=== PATIENT | male | born 1950 | race African-American/Black ===

== ENCOUNTER 2020-01-23 03:19 | Inpatient (IN) | payer BC, OTHER ==
[~2020-01-23] VITALS: Ht 172.7 cm; Wt 73.5 kg
[2020-01-23] VITALS (7 sets, daily range): BP systolic 127–159; BP diastolic 48–97
[2020-01-23] MEDS ORDERED: SODIUM CHLORIDE 0.9% 1,000 ML IV ONE (03:29)
[2020-01-23] MEDS ORDERED: METHYLPREDNISOLONE SOD SUCC 125 MG/2 ML VIAL IV STA (03:29)
[2020-01-23] MEDS ORDERED: IPRATROPIUM BROMIDE (0.02%) 0.5MG/2.5ML NEB HHN STA (03:29)
[2020-01-23] MEDS ORDERED: ONDANSETRON HCL 4MG/2ML INJ IV STA (03:29)
[2020-01-23] MEDS ORDERED: MAGNESIUM 2 G PREMIX 50 ML IV ONE (03:30)
[2020-01-23] MEDS: ALBUTEROL (0.083%) 2.5MG/3ML NEB HHN SCH ×2 (03:40→05:55)
[2020-01-23 04:03] LABS: BG BASE EXCESS -2.6 mmol/L (-2.0-2.0); BG BILEVEL POS AIRWAY PRESSURE 18/5; BG CARBOXYHEMOGLOBIN 0.3 % (0.5-1.5); BG DEOXYHEMOGLOBIN 0.8 % (0.0-5.0); BG FRACTION INSPIRED OXYGEN 50; BG HCO3 ACT 23.4 mmol/L (22.0-26.0); BG METHEMOGLOBIN 0.4 % (0.0-1.5); BG OXYGEN SATURATION 99.2 % (92.0-98.5); BG OXYHEMOGLOBIN 98.5 % (94.0-97.0); BG PCO2 45.3 mmHg (35.0-45.0); BG PH 7.331 (7.350-7.450); BG PO2 229.8 mmHg (75.0-100.0); BG SAMPLE SITE RIGHT BRACHIAL; BG TOTAL HEMOGLOBIN 13.1 g/dL (12.0-18.0); BG VENT MODE MASK - BIPAP; BG VENT RATE 16 set
[2020-01-23 04:08] LABS: BASOPHILS % 0.7 % (0.0-2.0); CHLORIDE 101 mEq/L (98-107); EOSINOPHILS % 12.7 % (0.0-5.0); HEMATOCRIT. 39.6 % (42.0-52.0); HEMOGLOBIN. 13.1 g/dL (14.0-18.0); MEAN CORPUSCULAR HEMOGLOBIN 29.9 pg (28.0-32.0); MEAN CORPUSCULAR VOLUME 90.4 fL (80.0-94.0); MONOCYTES % 5.2 % (2.0-8.0); NEUTROPHILS % 69.4 % (40.0-76.0); PLATELET 173 x1000/uL (130-400); RED BLOOD CELL COUNT 4.38 mill/uL (4.7-6.1); RED CELL DISTRIBUTION WIDTH 15.4 % (11.6-14.6)
[2020-01-23] MEDS ORDERED: IPRATROPIUM BROMIDE (0.02%) 0.5MG/2.5ML NEB ONE (08:01)
[2020-01-23] MEDS ORDERED: ALBUTEROL (0.083%) 2.5MG/3ML NEB ONE (08:02)
[2020-01-23] MEDS ORDERED: MAGNESIUM/ALUMINUM HYDROXIDE/SIMETHICONE 30ML UDC PO PRN (08:45)
[2020-01-23] MEDS ORDERED: ONDANSETRON HCL 4MG/2ML INJ IV PRN (08:45)
[2020-01-23] MEDS ORDERED: IPRATROPIUM/ALBUTEROL 0.5-3(2.5)MG/3ML NEB NEB PRN (08:45)
[2020-01-23] MEDS ORDERED: GUAIFENESIN 200MG/10ML SUGAR FREE UDC PO PRN (08:45)
[2020-01-23] MEDS ORDERED: DEXTROSE 50% WATER 50ML SYRINGE IV PRN (08:45)
[2020-01-23] MEDS ORDERED: DOCUSATE SODIUM 100MG CAPSULE PO PRN (08:45)
[2020-01-23] MEDS ORDERED: ACETAMINOPHEN 325MG TABLET PO PRN ×2 (08:45)
[2020-01-23] MEDS ORDERED: TRAMADOL 50MG TABLET PO PRN (08:45)
[2020-01-23] MEDS: BLOOD SUGAR DIAGNOSTIC STRIP TEST SCH ×4 (09:00→21:00)
[2020-01-23] MEDS ORDERED: LEVOFLOXACIN 500MG PREMIX 100 ML IV SCH (09:30)
[2020-01-23] MEDS ORDERED: INSULIN GLARGINE UD 100 UNITS/ML SYR SUBCUT SCH (10:00)
[2020-01-23] MEDS: AMLODIPINE 10MG TABLET PO SCH (10:45)
[2020-01-23] MEDS: ASPIRIN 325MG EC TABLET PO SCH (10:45)
[2020-01-23] MEDS: ENOXAPARIN 40MG/0.4ML SYR SUBCUT SCH (10:47)
[2020-01-23] MEDS: INSULIN LISPRO 100 UNITS/ML SUBCUT SCH ×4 (10:47→22:28)
[2020-01-23] MEDS: FAMOTIDINE 20MG TABLET PO SCH ×2 (11:03→22:02)
[2020-01-23] MEDS: IPRATROPIUM/ALBUTEROL 0.5-3(2.5)MG/3ML NEB HHN SCH ×3 (11:09→20:00)
[2020-01-23] MEDS ORDERED: HYDR-4133 PO (12:15)
[2020-01-23] MEDS ORDERED: METF500T MT (12:15)
[2020-01-23] MEDS ORDERED: LISI-186 PO (12:15)
[2020-01-23] MEDS ORDERED: ATOR40TA70 MT (12:15)
[2020-01-23] MEDS ORDERED: ATEN-42 PO (12:15)
[2020-01-23] MEDS ORDERED: GLIP10TA10 MT (12:15)
[2020-01-23] MEDS: METHYLPREDNISOLONE SOD SUCC 125 MG/2 ML VIAL IV SCH ×2 (13:55→22:02)
[2020-01-23 16:00] LABS: CREATINE KINASE MB FRACTION 3.5 ng/mL (0.5-3.6)
[2020-01-23] MEDS: CLONIDINE 0.1MG TABLET PO PRN (18:20)
[2020-01-23] MEDS: GUAIFENESIN/DM 600MG/30MG ER TAB 12HR PO SCH (22:02)
[2020-01-24] VITALS (12 sets, daily range): BP systolic 132–185; BP diastolic 78–106
[2020-01-24] MEDS: ZOLPIDEM TARTRATE 5MG TABLET PO PRN ×2 (00:55→22:00)
[2020-01-24] MEDS: IPRATROPIUM/ALBUTEROL 0.5-3(2.5)MG/3ML NEB HHN SCH ×7 (00:59→23:59)
[2020-01-24] MEDS: GUAIFENESIN/DM 600MG/30MG ER TAB 12HR PO SCH ×3 (05:39→21:41)
[2020-01-24] MEDS: METHYLPREDNISOLONE SOD SUCC 125 MG/2 ML VIAL IV SCH ×3 (05:39→21:41)
[2020-01-24] MEDS: BLOOD SUGAR DIAGNOSTIC STRIP TEST SCH ×3 (07:30→21:56)
[2020-01-24] MEDS: ENOXAPARIN 40MG/0.4ML SYR SUBCUT SCH (09:30)
[2020-01-24] MEDS: ASPIRIN 325MG EC TABLET PO SCH (09:30)
[2020-01-24] MEDS: INSULIN LISPRO 100 UNITS/ML SUBCUT SCH ×4 (09:31→21:56)
[2020-01-24] MEDS: FAMOTIDINE 20MG TABLET PO SCH ×2 (09:32→21:48)
[2020-01-24] MEDS: AMLODIPINE 10MG TABLET PO SCH (09:32)
[2020-01-24] MEDS: LISINOPRIL 40MG TABLET PO SCH (10:45)
[2020-01-24] MEDS ORDERED: DILTIAZEM HCL 5MG/ML 5ML VIAL IV NR (10:45)
[2020-01-24] MEDS: NITROGLYCERIN 0.4MG TABLET SL SL PRN ×2 (10:51→12:37)
[2020-01-24] MEDS ORDERED: NITROGLYCERIN 50MCG/ML 10ML VIAL (CATH LAB) IV ONE (10:56)
[2020-01-24] MEDS ORDERED: NICARDIPINE 100MCG/ML 10ML VIAL (CATH LAB) IV ONE (10:56)
[2020-01-24] MEDS ORDERED: HEPARIN SODIUM 1,000 UNIT/1ML VIAL IV ONE (10:56)
[2020-01-24] MEDS ORDERED: LEVOFLOXACIN 500MG PREMIX 100 ML IV SCH ×2 (11:00→12:00)
[2020-01-24] MEDS: MORPHINE SULFATE 2 MG/ML CPJ (NOT FOR IM USE) IV PRN (11:03)
[2020-01-24 12:15] LABS: CREATINE KINASE MB FRACTION 4.1 ng/mL (0.5-3.6)
[2020-01-24] MEDS: CLONIDINE 0.1MG TABLET PO PRN (12:37)
[2020-01-24] MEDS ORDERED: INSULIN GLARGINE UD 100 UNITS/ML SYR SUBCUT NR (14:00)
[2020-01-24] MEDS ORDERED: FENTANYL CITRATE/PF 50MCG/ML 2ML VIAL ONE (15:17)
[2020-01-24] MEDS ORDERED: MIDAZOLAM HCL 2 MG/2 ML VIAL ONE (15:17)
[2020-01-24] MEDS ORDERED: LIDOCAINE HCL 1% 20ML VIAL (Pyxis) INJ ONE (15:18)
[2020-01-24] MEDS ORDERED: IODIXANOL 320MG/ML 100 ML BOTTLE IV ONE (15:18)
[2020-01-24] MEDS ORDERED: IOHEXOL-300 100 ML BOTTLE ONE (15:43)
[2020-01-24] MEDS ORDERED: CLOPIDOGREL 75MG TABLET ONE (16:01)
[2020-01-24] MEDS ORDERED: ASPIRIN 325MG TABLET ONE (16:01)
[2020-01-24] MEDS ORDERED: ACETAMINOPHEN 325MG TABLET PO PRN (16:15)
[2020-01-24] MEDS ORDERED: ONDANSETRON HCL 4MG/2ML INJ IV PRN (16:15)
[2020-01-24] MEDS ORDERED: ATROPINE SULFATE 1MG/10ML SYR IV PRN (16:15)
[2020-01-24] MEDS: DILTIAZEM HCL 60MG TABLET PO SCH ×2 (18:02→21:42)
[2020-01-24] MEDS: NITROGLYCERIN OINT 1GM/INCH UDPKT TD SCH ×2 (18:12→21:43)
[2020-01-25] VITALS (10 sets, daily range): BP systolic 115–172; BP diastolic 62–96
[2020-01-25] MEDS: IPRATROPIUM/ALBUTEROL 0.5-3(2.5)MG/3ML NEB HHN SCH ×4 (04:31→16:12)
[2020-01-25] MEDS: DILTIAZEM HCL 60MG TABLET PO SCH ×2 (05:32→13:00)
[2020-01-25] MEDS: METHYLPREDNISOLONE SOD SUCC 125 MG/2 ML VIAL IV SCH ×2 (05:32→13:00)
[2020-01-25] MEDS: NITROGLYCERIN OINT 1GM/INCH UDPKT TD SCH ×2 (05:33→13:00)
[2020-01-25] MEDS: BLOOD SUGAR DIAGNOSTIC STRIP TEST SCH ×2 (06:38→11:12)
[2020-01-25 07:24] LABS: HEMOGLOBIN. 11.2 g/dL (14.0-18.0); MEAN CORPUSCULAR HEMOGLOBIN 30.3 pg (28.0-32.0); MEAN PLATELET VOLUME 10.8 fl (7.4-10.4); PLATELET 153 x1000/uL (130-400); RED BLOOD CELL COUNT 3.71 mill/uL (4.7-6.1); RED CELL DISTRIBUTION WIDTH 15.5 % (11.6-14.6)
[2020-01-25 08:02] LABS: CHLORIDE 104 mEq/L (98-107)
[2020-01-25] MEDS: FAMOTIDINE 20MG TABLET PO SCH (08:08)
[2020-01-25] MEDS: LISINOPRIL 40MG TABLET PO SCH (08:08)
[2020-01-25] MEDS: GUAIFENESIN/DM 600MG/30MG ER TAB 12HR PO SCH (08:08)
[2020-01-25] MEDS: INSULIN LISPRO 100 UNITS/ML SUBCUT SCH ×2 (08:09→11:30)
[2020-01-25] MEDS: ENOXAPARIN 40MG/0.4ML SYR SUBCUT SCH (08:11)
[2020-01-25] MEDS ORDERED: ASPIRIN 325MG TABLET PO SCH (09:00)
[2020-01-25] MEDS ORDERED: CLOPIDOGREL 75MG TABLET PO SCH (09:00)
[2020-01-25] MEDS ORDERED: ASPIRIN 81MG EC TABLET PO SCH (09:00)
[2020-01-25] MEDS ORDERED: INSULIN GLARGINE UD 100 UNITS/ML SYR SUBCUT SCH (10:00)
[2020-01-25] MEDS: MORPHINE SULFATE 2 MG/ML CPJ (NOT FOR IM USE) IV PRN (10:34)
[2020-01-25] MEDS: CLONIDINE 0.1MG TABLET PO PRN (10:37)
[2020-01-25] MEDS ORDERED: INSULIN LISPRO 100 UNITS/ML SUBCUT ONE (11:30)
[2020-01-25] MEDS ORDERED: INSULIN LISPRO 100 UNITS/ML SUBCUT SCH (11:45)
[2020-01-25 12:16] LABS: PLATELET ESTIMATE NORMAL
[2020-01-25] MEDS ORDERED: HYDRALAZINE HCL 100MG TABLET PO SCH (14:00)
== END 2020-01-25 19:01 | disposition short-term general hospital (02) | DRG 246 ==
LOC: ER 03:19 → 5EST 05:20 → EDBEDREQTM 05:23 → EDBEDREQ 05:23 → ENRESERV 10:49 → 3WST 01-24 16:35
PROVIDERS: ADMIT Internal Medicine; ATTEND Internal Medicine
PROC: 5A09357 Assistance with Respiratory Ventilation, Less than 24 Consecutive Hours, Continuous Positive Airway Pressure (ICD-10-PCS; 2020-01-23)
PROC: 027034Z Dilation of Coronary Artery, One Artery with Drug-eluting Intraluminal Device, Percutaneous Approach (ICD-10-PCS; principal; 2020-01-24)
PROC: 4A023N7 Measurement of Cardiac Sampling and Pressure, Left Heart, Percutaneous Approach (ICD-10-PCS; 2020-01-24)
PROC: B2111ZZ Fluoroscopy of Multiple Coronary Arteries using Low Osmolar Contrast (ICD-10-PCS; 2020-01-24)
PROC: B2151ZZ Fluoroscopy of Left Heart using Low Osmolar Contrast (ICD-10-PCS; 2020-01-24)
DX: I21.4 Non-ST elevation (NSTEMI) myocardial infarction (principal); J96.00 Acute respiratory failure, unspecified whether with hypoxia or hypercapnia; J44.1 Chronic obstructive pulmonary disease with (acute) exacerbation; I25.110 Atherosclerotic heart disease of native coronary artery with unstable angina pectoris; D63.8 Anemia in other chronic diseases classified elsewhere; E11.65 Type 2 diabetes mellitus with hyperglycemia; E78.5 Hyperlipidemia, unspecified; F17.210 Nicotine dependence, cigarettes, uncomplicated; R79.89 Other specified abnormal findings of blood chemistry; I11.9 Hypertensive heart disease without heart failure; Z82.49 Family history of ischemic heart disease and other diseases of the circulatory system
CPT/HCPCS: 36415; 36600; 71045; 80048; 80053; 80061; 82375; 82550; 82553; 82805; 82962; 83036; 83605; 83880; 84484; 85025; 85347; 92928; 93005; 93306; 93458; 93970; 94640; 94660; 99291; C1769; C1874; C1887; C1893; J1644; J1650; J1815; J1956; J2250; J2270; J2405; J2930; J3010; J3475; J3490; J7030; Q9967